=== PATIENT | female | born 1995 | race Caucasian/White ===

== ENCOUNTER 2023-09-03 10:16 | Inpatient (IN) | payer MEDICAID, OTHER ==
[~2023-09-03] VITALS: Ht 160 cm; Wt 90.7 kg
[2023-09-03 11:07] LABS: BASOPHILS % 0.1 % (0.0-2.0); EOSINOPHILS % 0.1 % (0.0-5.0); HEMATOCRIT. 38.2 % (36.0-48.0); HEMOGLOBIN. 12.3 g/dL (12.0-16.0); LYMPHOCYTES % 11.9 % (20.0-50.0); MEAN CORPUSCULAR HEMOGLOBIN 29.7 pg (28.0-32.0); MEAN CORPUSCULAR HGB CONC 32.2 g/dL (31.0-37.0); MEAN CORPUSCULAR VOLUME 92.4 fL (81.0-99.0); MEAN PLATELET VOLUME 9.9 fl (7.4-10.4); MONOCYTES % 2.9 % (2.0-8.0); PLATELET 261 x1000/uL (130-400); RED BLOOD CELL COUNT 4.14 mill/uL (4.2-5.4); RED CELL DISTRIBUTION WIDTH 13.5 % (11.6-14.6); WHITE BLOOD COUNT 18.2 x1000/uL (4.5-11.0)
[2023-09-03 11:20] LABS: ALANINE AMINOTRANSFERASE 12 IU/L (10-49); ALBUMIN 4.8 g/dL (3.2-4.8); ASPARTATE AMINOTRANSFERASE 15 IU/L (<34); BILIRUBIN TOTAL 0.4 mg/dL (0.1-1.0); CALCIUM 9.1 mg/dL (8.7-10.4); CARBON DIOXIDE 22 mEq/L (21-32); CHLORIDE 109 mEq/L (98-107); CREATININE 0.7 mg/dL (0.6-1.0); GLUCOSE 149 mg/dL (70-105); POTASSIUM 3.9 mEq/L (3.5-5.1); PROTEIN TOTAL 7.7 g/dL (6.0-8.3); SODIUM 138 mEq/L (136-145); UREA NITROGEN BLOOD 12 mg/dL (9-23)
[2023-09-03 13:31] LABS: HCG SCREEN POSITIVE
[2023-09-03] MEDS: SODIUM CHLORIDE 0.9% 1,000 ML IV ONE ×2 (13:44→16:08)
[2023-09-03] MEDS: MORPHINE SULFATE 4 MG/ML INJ (FOR IV/IM USE) IV NR (16:07)
[2023-09-03 16:25] LABS: PROTHROMBIN TIME 11.4 sec (9.6-11.0)
[2023-09-03] MEDS: MORPHINE SULFATE 4 MG/ML INJ (FOR IV/IM USE) IV ONE (17:30)
[2023-09-03] MEDS: ONDANSETRON HCL 4MG/2ML INJ IV ONE (17:36)
[2023-09-03] MEDS ORDERED: METOCLOPRAMIDE HCL 10MG/2ML VIAL ONE (20:05)
[2023-09-03] MEDS ORDERED: LIDOCAINE HCL 1% 10 MG/ML 10ML VIAL ONE (20:05)
[2023-09-03] MEDS ORDERED: SUCCINYLCHOLINE CHLORIDE 200MG/10ML IV ONE (20:05)
[2023-09-03] MEDS ORDERED: DEXAMETHASONE 4MG/ML 1ML VIAL ONE (20:05)
[2023-09-03] MEDS ORDERED: FENTANYL CITRATE/PF 50MCG/ML 2ML VIAL ONE ×2 (20:06→20:48)
[2023-09-03] MEDS ORDERED: PROPOFOL 200MG/20ML VIAL IV ONE (20:06)
[2023-09-03] MEDS ORDERED: MIDAZOLAM HCL 2 MG/2 ML VIAL ONE (20:06)
[2023-09-03] MEDS ORDERED: ROCURONIUM BROMIDE 10MG/ML VIAL 5ML IV ONE (20:06)
[2023-09-03] MEDS ORDERED: FAMOTIDINE 20MG/2ML VIAL IV ONE (20:19)
[2023-09-03] MEDS ORDERED: ALBUMIN HUMAN 12.5G/250ML (5%) IV ONE (20:29)
[2023-09-03] MEDS ORDERED: PHENYLEPHRINE HCL 10 MG/ML 1ML (IV VIAL) IV ONE (20:41)
[2023-09-03] MEDS ORDERED: HYDROMORPHONE HCL/PF 2MG/ML CPJ ONE (20:50)
[2023-09-03] MEDS ORDERED: NEOSTIGMINE METHYLSULFATE 1MG/ML 10 ML VIAL ONE (20:58)
[2023-09-03] MEDS ORDERED: GLYCOPYRROLATE 0.2 MG/ML 2ML VIAL ONE (20:59)
[2023-09-03] MEDS ORDERED: SKIN ADHESIVE 0.7 GM EA TOP ONE (21:04)
[2023-09-03] MEDS ORDERED: ONDANSETRON HCL 4MG/2ML INJ IV PRN (21:15)
[2023-09-03] MEDS ORDERED: ACETAMINOPHEN 650MG SUPP PR PRN ×2 (21:15)
[2023-09-03] MEDS ORDERED: MORPHINE SULFATE 4 MG/ML INJ (FOR IV/IM USE) IV PRN (21:15)
[2023-09-03] MEDS ORDERED: FENTANYL CITRATE/PF 50MCG/ML 2ML VIAL IV PRN (21:30)
[2023-09-03] MEDS ORDERED: HYDROMORPHONE HCL/PF 2MG/ML CPJ IV PRN (21:30)
[2023-09-04 02:23] VITALS: BP 98/76; PULSE 112; RESP 18; TEMP 100.6
[2023-09-04] MEDS: DEXT 5%/0.45% NACL KCL 20MEQ/L 1,000 ML IV SCH ×2 (06:06→21:15)
[2023-09-04] MEDS: CEFAZOLIN 1000MG PREMIX 50 ML IV SCH ×2 (06:06→13:50)
[2023-09-04 08:00] VITALS: BP 102/57; PULSE 116; RESP 18; TEMP 98
[2023-09-04 08:47] LABS: HEMATOCRIT. 27.1 % (36.0-48.0); LYMPHOCYTES % 7.9 % (20.0-50.0); MEAN CORPUSCULAR HEMOGLOBIN 30.1 pg (28.0-32.0); MEAN CORPUSCULAR HGB CONC 33.2 g/dL (31.0-37.0); MEAN CORPUSCULAR VOLUME 90.6 fL (81.0-99.0); MEAN PLATELET VOLUME 9.7 fl (7.4-10.4); MONOCYTES % 4.7 % (2.0-8.0); NEUTROPHILS % 87.4 % (40.0-76.0); PLATELET 147 x1000/uL (130-400); RED BLOOD CELL COUNT 2.99 mill/uL (4.2-5.4); WHITE BLOOD COUNT 18.3 x1000/uL (4.5-11.0)
[2023-09-04] MEDS: FAMOTIDINE 20MG/2ML VIAL IV SCH (09:04)
[2023-09-04 09:05] LABS: PROTHROMBIN TIME 11.4 sec (9.6-11.0)
[2023-09-04 09:15] LABS: CALCIUM 7.8 mg/dL (8.7-10.4); CARBON DIOXIDE 22 mEq/L (21-32); CHLORIDE 112 mEq/L (98-107); CREATININE 0.6 mg/dL (0.6-1.0); GLUCOSE 155 mg/dL (70-105); SODIUM 140 mEq/L (136-145); UREA NITROGEN BLOOD 7 mg/dL (9-23)
[2023-09-04] MEDS: MORPHINE SULFATE 2 MG/ML CPJ (NOT FOR IM USE) IV PRN (10:45)
[2023-09-04] MEDS ORDERED: NALOXONE HCL 0.4MG/ML VIAL IV PRN (11:30)
[2023-09-04 12:00] VITALS: BP 99/58; PULSE 112; RESP 18; TEMP 97.9
[2023-09-04 16:00] VITALS: BP 95/47; PULSE 116; RESP 18; TEMP 98.8
[2023-09-04 20:00] VITALS: BP 109/55; PULSE 115; RESP 18; TEMP 100.8
[2023-09-05] VITALS (7 sets, daily range): BP systolic 97–112; BP diastolic 57–68; PULSE 95–118; RESP 18–20; TEMP 98.7–100.8; O2SAT 100
[2023-09-05] MEDS ORDERED: CEPH500T MT (18:42)
[2023-09-05] MEDS ORDERED: IBUP-2030 MT (18:42)
[2023-09-06] VITALS: BP 113/62; PULSE 78; RESP 18; TEMP 98.5
== END 2023-09-06 00:15 | disposition home or self-care (01) | DRG 547 ==
LOC: ER 13:22 → 6EST 15:54
PROVIDERS: ADMIT Obstetrics & Gynecology; ATTEND Obstetrics & Gynecology
PROC: 0UB60ZZ Excision of Left Fallopian Tube, Open Approach (ICD-10-PCS; principal; 2023-09-03)
PROC: 30233N1 Transfusion of Nonautologous Red Blood Cells into Peripheral Vein, Percutaneous Approach (ICD-10-PCS; 2023-09-03)
DX: O00.102 Left tubal pregnancy without intrauterine pregnancy (principal)
CPT/HCPCS: 36415; 76801; 80048; 80053; 84702; 84703; 85025; 86850; 86900; 86920; 88302; 99291; J0330; J0690; J1100; J1170; J2250; J2270; J2370; J2405; J2704; J2710; J2765; J3010; J3490; J7030; P9016; P9041

== ENCOUNTER 2024-04-07 11:51 | Emergency (ER) | payer OTHER ==
[~2024-04-07] VITALS: Ht 160 cm; Wt 91.0 kg
[~2024-04-07 11:51] MED LIST: CEPH500T MT; IBUP-2030 MT
[2024-04-07 11:56] VITALS: O2SAT 98
[2024-04-07 12:43] LABS: CLARITY URINE CLOUDY (CLEAR); COLOR URINE YELLOW (YELLOW); GLUCOSE URINE NEGATIVE (NEGATIVE); KETONES URINE NEGATIVE (NEGATIVE); LEUKOCYTE ESTERASE URINE 2+ (NEGATIVE); NITRITE URINE NEGATIVE (NEGATIVE); OCCULT BLOOD URINE NEGATIVE (NEGATIVE); PH URINE 7.5 (4.5-8.0); PROTEIN URINE TRACE (NEGATIVE)
[2024-04-07 13:18] LABS: SQUAMOUS EPITHELIAL CELL URINE 3+ /lpf (RARE/1+)
[2024-04-07 13:20] LABS: BACTERIA URINE 3+
[2024-04-07 13:21] LABS: MUCUS URINE TRACE /lpf (< = 2+)
[2024-04-07 13:22] LABS: WBC URINE 0-2 /hpf (0-2)
[2024-04-07 13:23] LABS: RBC URINE 0-2 /hpf (0-2)
[2024-04-07] MEDS ORDERED: NITR-87 MT (15:10)
[2024-04-07 15:22] VITALS: BP 103/59; PULSE 65; RESP 18; TEMP 36.39180; O2SAT 97
== END 2024-04-07 15:24 | disposition home or self-care (01) ==
LOC: ER 11:51
DX: O23.42 Unspecified infection of urinary tract in pregnancy, second trimester (principal); N39.0 Urinary tract infection, site not specified; Z3A.23 23 weeks gestation of pregnancy
CPT/HCPCS: 76805; 81003; 81025; 99284

== ENCOUNTER 2024-11-13 22:45 | Emergency (ER) | payer OTHER ==
[~2024-11-13] VITALS: Ht 160 cm; Wt 98.0 kg
[~2024-11-13 22:45] MED LIST changes: +NITR-87 MT
[2024-11-13 22:47] VITALS: O2SAT 99
[2024-11-13] MEDS: KETOROLAC 30MG/ML VIAL IM ONE (23:36)
[2024-11-13 23:38] LABS: CLARITY URINE CLEAR (CLEAR); COLOR URINE YELLOW (YELLOW); GLUCOSE URINE NEGATIVE (NEGATIVE); KETONES URINE NEGATIVE (NEGATIVE); LEUKOCYTE ESTERASE URINE 1+ (NEGATIVE); NITRITE URINE NEGATIVE (NEGATIVE); OCCULT BLOOD URINE NEGATIVE (NEGATIVE); PH URINE 6.5 (4.5-8.0); PROTEIN URINE NEGATIVE (NEGATIVE); SPECIFIC GRAVITY URINE 1.025 (1.005-1.030)
[2024-11-13 23:49] LABS: CHLORIDE 105 mEq/L (98-107); POTASSIUM 3.9 mEq/L (3.5-5.1); SODIUM 139 mEq/L (136-145)
[2024-11-13 23:50] LABS: CALCIUM 9.6 mg/dL (8.7-10.4); CARBON DIOXIDE 25 mEq/L (21-32)
[2024-11-13 23:55] LABS: CREATININE 0.8 mg/dL (0.6-1.0); GLUCOSE 112 mg/dL (70-105); UREA NITROGEN BLOOD 10 mg/dL (9-23)
[2024-11-13 23:57] LABS: ALANINE AMINOTRANSFERASE 85 IU/L (10-49); ALBUMIN 4.6 g/dL (3.2-4.8); ASPARTATE AMINOTRANSFERASE 98 IU/L (<34); BILIRUBIN DIRECT 0.2 mg/dL (<=3.0)
[2024-11-13 23:58] LABS: BILIRUBIN TOTAL 0.5 mg/dL (0.1-1.0); PROTEIN TOTAL 7.5 g/dL (6.0-8.3)
[2024-11-14 00:03] LABS: BASOPHILS % 0.2 % (0.0-2.0); EOSINOPHILS % 0.8 % (0.0-5.0); HEMOGLOBIN. 13.5 g/dL (12.0-16.0); LYMPHOCYTES % 22.9 % (20.0-50.0); MEAN CORPUSCULAR HEMOGLOBIN 28.9 pg (28.0-32.0); MEAN CORPUSCULAR HGB CONC 32.9 g/dL (31.0-37.0); MONOCYTES % 7.1 % (2.0-8.0); PLATELET 204 x1000/uL (130-400); RED BLOOD CELL COUNT 4.66 mill/uL (4.2-5.4); RED CELL DISTRIBUTION WIDTH 14.6 % (11.6-14.6); WHITE BLOOD COUNT 10.2 x1000/uL (4.5-11.0)
[2024-11-14 00:04] LABS: HCG SCREEN NEGATIVE
[2024-11-14 00:13] LABS: BACTERIA URINE TRACE; RBC URINE 0-2 /hpf (0-2); SQUAMOUS EPITHELIAL CELL URINE 3+ /lpf (RARE/1+)
[2024-11-14] MEDS ORDERED: HYDROCODONE/ACETAMINOPHEN 10/325MG TABLET PO NR (00:30)
[2024-11-14] MEDS: HYDROCODONE/ACETAMINOPHEN 10/325MG TABLET PO NR (00:42)
[2024-11-14] MEDS: CEFTRIAXONE 1GM/50ML 50 ML IV ONE (01:37)
[2024-11-14] MEDS ORDERED: SULF1TAB48 MT (01:47)
[2024-11-14 02:19] VITALS: BP 112/72; PULSE 78; RESP 16; TEMP 36.7; O2SAT 99
== END 2024-11-14 02:23 | disposition home or self-care (01) ==
LOC: ER 22:45
DX: N39.0 Urinary tract infection, site not specified (principal); Z79.899 Other long term (current) drug therapy; Z98.890 Other specified postprocedural states
CPT/HCPCS: 80076; 80048; 81003; 81025; 84703; 83690; 85025; 87086; 36415; 74176; 96372; 99285; J1885; J0696; Z7610 ×2

== ENCOUNTER 2024-11-29 18:02 | Emergency (ER) | payer OTHER ==
[~2024-11-29] VITALS: Ht 165.1 cm; Wt 91.0 kg
[~2024-11-29 18:02] MED LIST changes: +SULF1TAB48 MT
[2024-11-29 18:03] VITALS: O2SAT 99
[2024-11-29 18:07] VITALS: RESP 18; TEMP 36.8; O2SAT 98
[2024-11-29 18:42] LABS: BASOPHILS % 0.3 % (0.0-2.0); EOSINOPHILS % 0.7 % (0.0-5.0); HEMATOCRIT. 39.7 % (36.0-48.0); HEMOGLOBIN. 13.1 g/dL (12.0-16.0); LYMPHOCYTES % 18.7 % (20.0-50.0); MEAN CORPUSCULAR HEMOGLOBIN 29.2 pg (28.0-32.0); MEAN CORPUSCULAR HGB CONC 33.1 g/dL (31.0-37.0); MEAN CORPUSCULAR VOLUME 88.4 fL (81.0-99.0); MEAN PLATELET VOLUME 9.6 fl (7.4-10.4); MONOCYTES % 5.7 % (2.0-8.0); NEUTROPHILS % 74.6 % (40.0-76.0); PLATELET 233 x1000/uL (130-400); RED BLOOD CELL COUNT 4.49 mill/uL (4.2-5.4); RED CELL DISTRIBUTION WIDTH 13.6 % (11.6-14.6); WHITE BLOOD COUNT 8.2 x1000/uL (4.5-11.0)
[2024-11-29 18:46] LABS: CLARITY URINE CLOUDY (CLEAR); COLOR URINE DARK YELLOW (YELLOW); GLUCOSE URINE NEGATIVE (NEGATIVE); KETONES URINE NEGATIVE (NEGATIVE); LEUKOCYTE ESTERASE URINE 3+ (NEGATIVE); NITRITE URINE NEGATIVE (NEGATIVE); OCCULT BLOOD URINE 2+ (NEGATIVE); PROTEIN URINE TRACE (NEGATIVE); SPECIFIC GRAVITY URINE 1.021 (1.005-1.030)
[2024-11-29 18:51] LABS: CHLORIDE 107 mEq/L (98-107); POTASSIUM 3.6 mEq/L (3.5-5.1); SODIUM 142 mEq/L (136-145)
[2024-11-29 18:52] LABS: CALCIUM 9.5 mg/dL (8.7-10.4); CARBON DIOXIDE 24 mEq/L (21-32)
[2024-11-29 18:57] LABS: CREATININE 0.7 mg/dL (0.6-1.0); GLUCOSE 93 mg/dL (70-105); UREA NITROGEN BLOOD 9 mg/dL (9-23)
[2024-11-29 18:58] LABS: HCG SCREEN NEGATIVE
[2024-11-29 18:59] LABS: ALANINE AMINOTRANSFERASE 269 IU/L (10-49); ALBUMIN 4.8 g/dL (3.2-4.8); ASPARTATE AMINOTRANSFERASE 272 IU/L (<34); BILIRUBIN DIRECT 0.5 mg/dL (<=3.0); BILIRUBIN TOTAL 1.1 mg/dL (0.1-1.0); PROTEIN TOTAL 7.2 g/dL (6.0-8.3)
[2024-11-29 19:08] LABS: BACTERIA URINE 3+; SQUAMOUS EPITHELIAL CELL URINE 2+ /lpf (RARE/1+)
[2024-11-29] MEDS: ACETAMINOPHEN 325MG TABLET PO ONE (20:54)
[2024-11-29 20:58] VITALS: BP 136/60; PULSE 72
[2024-11-29] MEDS: KETOROLAC 15MG/ML VIAL IM ONE (20:58)
[2024-11-29] MEDS: CEFTRIAXONE SODIUM 1G VIAL IM ONE (21:09)
[2024-11-29] MEDS ORDERED: [UNRECOGNIZED DRUG - CODE] MT (21:14)
== END 2024-11-29 23:35 | disposition home or self-care (01) ==
LOC: ER 18:02
DX: G89.29 Other chronic pain (principal); R10.9 Unspecified abdominal pain; K80.20 Calculus of gallbladder without cholecystitis without obstruction; N39.0 Urinary tract infection, site not specified; Z79.899 Other long term (current) drug therapy
CPT/HCPCS: 80076; 80048; 81003; 81025; 84703; 83690; 85025; 36415; 76705; 96372; 99285; J0696; J1885; Z7610